=== PATIENT | male | born 1960 | race American Indian/Alaskan Native ===

== ENCOUNTER 2019-03-08 23:13 | Emergency (ER) | payer OTHER ==
[2019-03-09 00:54] VITALS: BP 145/78
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
[2019-03-09] MEDS ORDERED: NORCO 5/325 PO ONE (02:52)
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
[2019-03-09] MEDS ORDERED: ZOFRAN IM ONE (05:10)
[2019-03-09] MEDS ORDERED: MORPHINE IM ONE (05:10)
== END 2019-03-09 07:31 | disposition home or self-care (01) ==
LOC: ED 23:13
DX: S42.294A Other nondisplaced fracture of upper end of right humerus, initial encounter for closed fracture (principal); S82.65XA Nondisplaced fracture of lateral malleolus of left fibula, initial encounter for closed fracture; Z88.0 Allergy status to penicillin; Z87.442 Personal history of urinary calculi; V87.7XXA Person injured in collision between other specified motor vehicles (traffic), initial encounter; Y93.89 Activity, other specified; Y92.488 Other paved roadways as the place of occurrence of the external cause; Y99.8 Other external cause status
CPT/HCPCS: 29515; 72040; 72100; 73030; 73562; 73610; 96372; 99284; J2270; J2405

== ENCOUNTER 2019-09-14 15:30 | Outpatient (CLI) | payer OTHER ==
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
== END 2019-09-14 15:31 | disposition home or self-care (01) ==
LOC: XRAY 15:30
DX: S42.291D Other displaced fracture of upper end of right humerus, subsequent encounter for fracture with routine healing (principal); M25.571 Pain in right ankle and joints of right foot; X58.XXXD Exposure to other specified factors, subsequent encounter